=== PATIENT | male | born 1980 | race Caucasian/White ===

== ENCOUNTER 2017-05-13 19:45 | Emergency (ER) | payer BC ==
[2017-05-13 19:49] VITALS: PULSE 107; TEMP 98.6; BMI 38.6
--- NOTE | 2017-05-13 21:38 | PDOC ---
History of Present Illness - General Chief Complaint: Urinary Problem Stated Complaint: URINARY PROBLEM Time Seen by Provider: 05/13/17 20:31 - History of Present Illness Initial Comments: 05/13/17 21:34 Patient is a 36 year old male with a history of DM who presents with discomfort with urination. He states that yesterday he began experiencing subjective fevers and lower abdominal pain with urination. He states that he took an ibuprofen which helped resolve his subjective fever. He reports feeling feverish again earlier this morning with unresolved discomfort with urination. He took another ibuprofen with relief of his "fever". He experienced an episode of chills later in the afternoon prompting his visit to the ED today. He states that his blood sugars run around 200. He also reports some pain in his mouth that he is currently undergo dental work for. He denies any nausea, vomiting, burning on urination or diarrhea. Past History - Past Medical History Allergies/Adverse Reactions: Allergies Allergy/AdvReac Type Severity Reaction Status Date / Time No Known Allergies Allergy Verified 05/13/17 19:49 Home Medications: Ambulatory Orders Amlodipine/Valsartan/Hcthiazid [Exforge Hct 10-320-25 mg Tab] 1 each PO DAILY Amox-Tr/K Cl [Augmentin - 875Mg Tablet] 1 tab PO BID #10 tablet 05/13/17 Insulin Glargine,Hum.rec.anlog [Lantus (10mL VIAL) -] 40 units SQ HS 05/13/17 Insulin Lispro [Humalog] 25 unit SQ DAILY 05/13/17 Diabetes: Yes - Psycho/Social/Smoking Cessation Hx Suicidal Ideation: No Smoking History: Never smoked Review of Systems - Review of Systems Constitutional: Yes: Chills, Fever, Malaise Respiratory: No: Cough, Shortness of Breath Cardiac (ROS): No: Chest Pain, Palpitations ABD/GI: No: Constipated, Diarrhea, Nausea, Vomiting : No: Burning, Discharge Integumentary: No: Rash Neurological: Yes: Headache. No: Weakness, Dizziness *Physical Exam - Vital Signs Last Vital Signs Temp Pulse Resp BP Pulse Ox 98.6 F 107 H 20 129/80 99 05/13/17 19:46 05/13/17 19:46 05/13/17 19:46 05/13/17 19:46 05/13/17 19:46 - Physical Exam Comments: 05/13/17 21:52 General Appearance: Nourished, Obese. No Apparent Distress HEENT: Pharyngeal Erythema, Tonsillar Exudate, Tonsillar Erythema. Draining fistula at #14 tooth with a temporary filling. Respiratory/Chest: Lungs Clear, Normal Breath Sounds. No Crackles, Rales, Rhonchi, Wheezing Cardiovascular: Regular Rhythm, Regular Rate. No Murmur, Gallop/S3, Gallop/S4 Gastrointestinal/Abdominal: Normal Bowel Sounds, Soft, Mild tenderness to palpation in the lower quadrants. No Guarding, Rebound Musculoskeletal: No CVA Tenderness Extremity:Normal Capillary Refill Integumentary: Normal Color, Dry, Warm Neurologic: Fully Oriented, Alert, Normal Mood/Affect, Normal Response ED Treatment Course - LABORATORY CBC & Chemistry Diagram: 05/13/17 21:35 05/13/17 21:35 Medical Decision Making - Medical Decision Making 05/13/17 21:49 Patient is a 36 year old male with a history of DM who presents with complaints of fevers, and discomfort with urination. Given the patient's history and physical exam UTI or Kidney stone is on the differential and we will obtain a UA to evaluate. He is afebrile in the ED, but we will obtain a CBC to look for a WBC given his report of fevers and chills. We will obtain a CMP and acetone given his long history of uncontrolled diabetes to evaluate for DKA as well. We will give antibiotics for his draining dental fistula. 05/13/17 22:52 Lab results are unremarkable besides a glucose of 350 which may be due to the patient eating without taking his nighttime dose of insulin. Acetone is negative and lab values show that the patient is not in DKA. The patient's reported fevers and chills may be due to his draining dental fistula. We will give him 875 Augmentin BID for 5 days and discharge home. We discussed the results with the patient and informed him to follow up with his dentist. He is agreeable to the plan. *DC/Admit/Observation/Transfer Diagnosis at time of Disposition: Dental fistula - Discharge Dispostion Disposition: HOME Condition at time of disposition: Improved - Prescriptions Prescriptions: Amox-Tr/K Cl [Augmentin - 875Mg Tablet] 1 tab PO BID #10 tablet - Referrals Referrals: Aron Taylor MD [Primary Care Provider] - - Patient Instructions Printed Discharge Instructions: DI for Dental Pain Additional Instructions: Please return to the ER if you experience worsening symptoms including worsening fevers, chills, or weakness, vomiting. Please diamond picker your prescription for Augmentin from your pharmacy and take twice daily with food for 5 days. Please follow up with your primary care provider to discuss your ER visit. Please schedule an appointment with your dentist in regards to your draining dental fistula. - Attestations Physician Attestion: 05/13/17 23:23 I, Dr. Kumar Gonzales, attest that this document has been prepared under my direction and personally reviewed by me in its entirety. I further attest, that it accurately reflects all work, treatment, procedures and medical decision -making performed by me.
[2017-05-13] MEDS ORDERED: SODIUM CHLORIDE 1,000 ML IV STA (21:39)
[2017-05-13 21:42] LABS: BASOPHIL 0.3 % (0-2.0); EOSINOPHIL 0.2 % (0-4.5); MCH 27.6 pg (25.7-33.7); MCHC 34.1 g/dl (32.0-35.9); MEAN CELL VOLUME 81.1 fl (80-96); MEAN PLT VOLUME 8.3 fl (7.5-11.1); NEUTROPHILS 66.8 % (42.8-82.8); PLATELET COUNT 240 K/MM3 (134-434); RDW 13.6 % (11.9-15.9); WHITE BLOOD COUNT 6.2 K/mm3 (4.0-10.0)
[2017-05-13 21:45] LABS: URINE APPEARANCE SLCLOUDY; URINE BILIRUBIN NEGATIVE (NEGATIVE); URINE BLOOD 1+ (NEGATIVE); URINE COLOR YELLOW; URINE GLUCOSE (UA) 3+ (NEGATIVE); URINE KETONE TRACE (NEGATIVE); URINE LEUK ESTERASE NEGATIVE (NEGATIVE); URINE NITRITE NEGATIVE (NEGATIVE); URINE PROTEIN 2+ (NEGATIVE); URINE UROBILINOGEN NEGATIVE E.U./dl (0.2-1.0)
[2017-05-13] MEDS ORDERED: ACETAMINOPHEN 325 MG TABLET (FP) PO ONE (21:45)
[2017-05-13] MEDS ORDERED: ACETAMINOPHEN 325 MG TABLET (FP) ONE (21:59)
[2017-05-13 22:02] LABS: URINE BACTERIA RARE /hpf (NONE SEEN); URINE HYALINE CAST 10 /lpf; URINE MUCUS RARE; URINE RBC 6 /hpf (0-3); URINE WBC 11 /hpf (3-5)
[2017-05-13 22:10] LABS: ALBUMIN 3.2 g/dl (3.4-5.0); ANION GAP 7 (8-16); BILIRUBIN,TOTAL 0.5 mg/dL (0.2-1.0); CALCIUM 8.8 mg/dL (8.5-10.1); CO2 30 mmol/L (21-32); CREATININE 1.4 mg/dL (0.7-1.3); SGOT/AST 15 U/L (15-37); SGPT/ALT 26 U/L (12-78); TOT PROT 6.6 g/dl (6.4-8.2)
[2017-05-13 22:11] LABS: ALK PHOS 105 U/L (45-117)
[2017-05-13 22:14] LABS: GLUCOSE,RANDOM 354 mg/dL (74-106)
[2017-05-13] MEDS ORDERED: AMOX TR/POT CLAV 875MG/125MG TABLETS (FP) PO ONE (23:14)
[2017-05-13] MEDS ORDERED: AMOX TR/POT CLAV 875MG/125MG TABLETS (FP) ONE (23:21)
[2017-05-13 23:26] VITALS: BP 127/66
== END 2017-05-13 23:31 | disposition home or self-care (01) ==
LOC: JER 19:45
PROC: 3E0337Z Introduction of Electrolytic and Water Balance Substance into Peripheral Vein, Percutaneous Approach (ICD-10-PCS; principal; 2017-05-13)
DX: K04.6 Periapical abscess with sinus (principal); E11.9 Type 2 diabetes mellitus without complications; Z79.4 Long term (current) use of insulin
CPT/HCPCS: 36415; 80053; 81003; 81015; 82009; 85025; 99282-25